=== PATIENT | male | born 1950 | race Caucasian/White ===

== ENCOUNTER 2022-06-25 10:39 | Emergency (ER) | payer OTHER ==
[~2022-06-25] VITALS: Ht 177.8 cm; Wt 93.0 kg
[2022-06-25 10:43] VITALS: BP 113/47
[2022-06-25] MEDS ORDERED: ONDANSETRON 4 MG ODT PO ONE (10:50)
--- NOTE | 2022-06-25 11:08 | NUR ---
pt stated he is unable to void at this time
[2022-06-25] MEDS ORDERED: ONDA8TAB87 PO (11:39)
[2022-06-25] MEDS ORDERED: THO25 PO (11:39)
--- NOTE | 2022-06-25 11:43 | NUR ---
Patient discharged with v/s stable. Written and verbal after care instructions given and explained. Patient alert, oriented and verbalized understanding of instructions. Ambulatory with steady gait. All questions addressed prior to discharge. ID band removed. Patient advised to follow up with PMD. Rx of zofran/thorazine given. Patient educated on indication of medication including possible reaction and side effects. Opportunity to ask questions provided and answered.
== END 2022-06-25 11:43 | disposition home or self-care (01) ==
LOC: MED 10:39
DX: R06.6 Hiccough (principal); R11.2 Nausea with vomiting, unspecified; R19.7 Diarrhea, unspecified; Z98.890 Other specified postprocedural states
CPT/HCPCS: 99283; Q0162